=== PATIENT | female | born 1930 | race Caucasian/White ===

== ENCOUNTER 2017-03-21 08:03 | Day surgery (SDC) | payer OTHER, BC ==
[2017-03-21] MEDS ORDERED: ACETAMINOPHEN 325 MG TABLET (FP) PO ONE (08:30)
[2017-03-21] MEDS ORDERED: ACETAMINOPHEN 325 MG TABLET (FP) ONE (08:34)
[2017-03-21] MEDS ORDERED: ZOLEDRONIC ACID/MAN/WATER 100 ML IVPB ONE (09:00)
[2017-03-21 09:15] LABS: ALBUMIN 3.6 g/dl (3.4-5.0); ANION GAP 8 (8-16); BILIRUBIN,TOTAL 0.8 mg/dL (0.2-1.0); CALCIUM 9.3 mg/dL (8.5-10.1); CO2 28 mmol/L (21-32); CREATININE 1.2 mg/dL (0.55-1.02); GLUCOSE,RANDOM 63 mg/dL (74-106); SGOT/AST 18 U/L (15-37); SGPT/ALT 18 U/L (12-78); TOT PROT 6.5 g/dl (6.4-8.2)
[2017-03-21 09:16] LABS: ALK PHOS 55 U/L (45-117)
[2017-03-21 10:30] VITALS: BP 116/59; PULSE 57; TEMP 97.6
== END 2017-03-21 09:45 | disposition home or self-care (01) ==
LOC: JCHEMO 08:03
PROVIDERS: ATTEND Internal Medicine Endocrinology, Diabetes & Metabolism
PROC: 3E033GC Introduction of Other Therapeutic Substance into Peripheral Vein, Percutaneous Approach (ICD-10-PCS; principal; 2017-03-21)
DX: M81.0 Age-related osteoporosis without current pathological fracture (principal)
CPT/HCPCS: 36415; 80053; 96365; J3489

== ENCOUNTER 2018-06-16 14:56 | Emergency (ER) | payer OTHER, BC ==
[2018-06-16 15:16] VITALS: TEMP 98.5; BMI 18.6
[2018-06-16 15:43] LABS: BASO % 0.9 % (0-2.0); EOS % 3.2 % (0-4.5); HEMATOCRIT 38.6 % (32.4-45.2); HEMOGLOBIN 13.5 GM/dL (10.7-15.3); LYMPH % 19.6 % (8-40); MCHC 34.9 g/dl (32.0-36.0); MEAN CELL VOLUME 97.6 fl (80-96); MEAN PLT VOLUME 7.6 fl (7.5-11.1); MONO % 6.4 % (3.8-10.2); NEUT % 69.9 % (42.8-82.8); PLATELET COUNT 250 K/MM3 (134-434); RBC 3.95 M/mm3 (3.60-5.2); RDW 13.2 % (11.6-15.6); WHITE BLOOD COUNT 7.1 K/mm3 (4.0-10.0)
[2018-06-16 15:55] LABS: INR 0.93 (0.83-1.09)
[2018-06-16 15:58] LABS: ACTIVATED PTT 26.7 SECONDS (25.2-36.5)
--- NOTE | 2018-06-16 16:02 | PDOC ---
History of Present Illness - History of Present Illness Initial Comments: 06/16/18 18:29 The patient is an 87 year old female with a past medical history of proximal or paroxysmal atrial fibrillation, COPD, and osteoporosis who presents to the emergency department for evaluation of lightheadedness and palpitations which began at 12pm today. Patient reports feeling lightheaded and palpitations after hot yoga today. Patient reports taking an extra diltiazem after yoga today. She states I feel that I am in atrial fibrillation. Patient is currently taking aspirin. Denies allergies, ablations, and hx of PE, cancer, or recent travels. At presentation, patient reports her symptoms are feeling better. The patient denies chest pain, shortness of breath, headache, nausea, vomiting, fevers, chills, and any bowel/urinary symptoms. PCP: Dr. Armstrong Patient Support Specialist: Dr. Huntley Carton Forming Machine Tender: Dr. Crocker <Dustin Simpson - Last Filed: 06/16/18 18:29> - General History Source: Patient Exam Limitations: No Limitations <Cullen James - Last Filed: 06/20/18 18:08> - General Chief Complaint: Chest Pain Stated Complaint: CHEST PAIN Time Seen by Provider: 06/16/18 15:09 Past History <Dustin Simpson - Last Filed: 06/16/18 18:29> - Past Medical History Anemia: No Cardiac Disorders: Yes (A-FIB) COPD: Yes Hypercholesterolemia: Yes Liver Disease: Yes (mononuclosis hepatitis) - Surgical History Lung Surgery: No Orthopedic Surgery: Yes (RIGHT MIDDLE FINGER SURGERY) - Immunization History Td Vaccination: Yes Immunization Up to Date: Yes - Suicide/Smoking/Psychosocial Hx Smoking Status: No Smoking History: Never smoked Years of Tobacco Use: 20 Have you smoked in the past 12 months: No Number of Cigarettes Smoked Daily: 0 If you are a former smoker, when did you quit?: Over 50 years ago Cigars Per Day: 0 Information on smoking cessation initiated: No Hx Alcohol Use: No Drug/Substance Use Hx: No Substance Use Type: None Hx Substance Use Treatment: No <Cullen James - Last Filed: 06/20/18 18:08> - Past Medical History Allergies/Adverse Reactions: Allergies Allergy/AdvReac Type Severity Reaction Status Date / Time No Known Allergies Allergy Verified 06/16/18 17:48 Home Medications: Ambulatory Orders Cyanocobalamin (Vitamin B-12) [Vitamin B-12] 1 tab SL ASDIR 01/03/13 Multivitamin [Multivitamins] 1 each PO DAILY 01/03/13 Diltiazem Cd [Cardizem Cd -] 180 mg PO DAILY #0 cap.cd.24h 03/28/13 Metoprolol Succinate [Toprol XL -] 25 mg PO DAILY #0 tab.sr.24h 03/28/13 Aspirin [ASA -] 81 mg PO DAILY 04/06/15 Calcium Carbonate [Calcium] 500 mg PO DAILY 04/06/15 Review of Systems - Review of Systems Able to Perform ROS?: Yes Comments:: GENERAL/CONSTITUTIONAL: No fever or chills. No weakness. HEAD, EYES, EARS, NOSE AND THROAT: No change in vision. No ear pain or discharge. No sore throat. CARDIOVASCULAR: (+)Palpitations. No chest pain or shortness of breath. RESPIRATORY: No cough, wheezing, or hemoptysis. GASTROINTESTINAL: No nausea, vomiting, diarrhea or constipation. GENITOURINARY: No dysuria, frequency, or change in urination. MUSCULOSKELETAL: No joint or muscle swelling or pain. No neck or back pain. SKIN: No rash NEUROLOGIC: (+)Lightheadedness. No headache, vertigo, loss of consciousness, or change in strength/sensation. ENDOCRINE: No increased thirst. No abnormal weight change. HEMATOLOGIC/LYMPHATIC: No anemia, easy bleeding, or history of blood clots. ALLERGIC/IMMUNOLOGIC: No hives or skin allergy. <Dustin Simpson - Last Filed: 06/16/18 18:29> *Physical Exam - Vital Signs Last Vital Signs Temp Pulse Resp BP Pulse Ox 98.5 F 69 18 109/67 100 06/16/18 15:01 06/16/18 18:02 06/16/18 18:02 06/16/18 18:02 06/16/18 18:02 - Physical Exam Comments: GENERAL: Awake, alert, and fully oriented, in no acute distress HEAD: No signs of trauma EYES: PERRLA, EOMI, sclera anicteric, conjunctiva clear NECK: Normal ROM, supple, no lymphadenopathy, JVD, or masses LUNGS: Breath sounds equal, clear to auscultation bilaterally. No wheezes, and no crackles HEART: Regular rate and rhythm, normal S1 and S2, no murmurs, rubs or gallops ABDOMEN: Soft, nontender, normoactive bowel sounds. No guarding, no rebound. No masses EXTREMITIES: Normal range of motion, no edema. No clubbing or cyanosis. No cords, erythema, or tenderness NEUROLOGICAL: Cranial nerves II through XII grossly intact. Normal speech, normal gait SKIN: Warm, Dry, normal turgor, no rashes or lesions noted. <Dustin Simpson - Last Filed: 06/16/18 18:29> - Vital Signs Last Vital Signs Temp Pulse Resp BP Pulse Ox 98.5 F 89 16 122/85 100 06/16/18 15:01 06/16/18 15:01 06/16/18 15:01 06/16/18 15:01 06/16/18 15:01 <Cullen James - Last Filed: 06/20/18 18:08> Moderate Sedation - Procedure Monitoring Vital Signs: Procedure Monitoring Vital Signs Temperature 98.5 F 06/16/18 15:01 Pulse Rate 69 06/16/18 18:02 Respiratory Rate 18 06/16/18 18:02 Blood Pressure 109/67 06/16/18 18:02 O2 Sat by Pulse Oximetry (%) 100 06/16/18 18:02 <Dustin Simpson - Last Filed: 06/16/18 18:29> - Procedure Monitoring Vital Signs: Procedure Monitoring Vital Signs Temperature 98.5 F 06/16/18 15:01 Pulse Rate 89 06/16/18 15:01 Respiratory Rate 16 06/16/18 15:01 Blood Pressure 122/85 06/16/18 15:01 O2 Sat by Pulse Oximetry (%) 100 06/16/18 15:01 <Cullen James - Last Filed: 06/20/18 18:08> Heart Score/ECG Review #1 ECG reviewed & interpreted by me at: 15:05 06/16/18 16:02 NSR 114, no std/keo, normal axis, normal intervals, QTC 407 msec <Cullen James - Last Filed: 06/20/18 18:08> ED Treatment Course - LABORATORY CBC & Chemistry Diagram: 06/16/18 15:16 06/16/18 17:10 - ADDITIONAL ORDERS Additional order review: Laboratory Results 06/16/18 06/16/18 06/16/18 17:10 15:16 15:16 PT with INR 11.00 INR 0.93 PTT (Actin FS) 26.7 Sodium 137 Cancelled Potassium 4.7 Cancelled Chloride 106 Cancelled Carbon Dioxide 26 Cancelled Anion Gap 5 L Cancelled BUN 28 H Cancelled Creatinine 1.2 Cancelled Creat Clearance w eGFR 42.40 Cancelled Random Glucose 85 Cancelled Calcium 8.7 Cancelled Phosphorus 3.3 Cancelled Magnesium 2.1 Cancelled Total Bilirubin 0.5 Cancelled AST 19 Cancelled ALT 19 Cancelled Alkaline Phosphatase 56 Cancelled Creatine Kinase 44 Cancelled Troponin I < 0.02 Cancelled Total Protein 6.2 L Cancelled Albumin 3.3 L Cancelled TSH 1.60 Cancelled 06/16/18 15:16 RBC 3.95 MCV 97.6 H MCHC 34.9 RDW 13.2 MPV 7.6 Neutrophils % 69.9 Lymphocytes % 19.6 Monocytes % 6.4 Eosinophils % 3.2 Basophils % 0.9 <Dustin Simpson - Last Filed: 06/16/18 18:29> - LABORATORY CBC & Chemistry Diagram: 06/16/18 15:16 06/16/18 17:10 - ADDITIONAL ORDERS Additional order review: Laboratory Results 06/16/18 15:16 PT with INR 11.00 INR 0.93 06/16/18 15:16 RBC 3.95 MCV 97.6 H MCHC 34.9 RDW 13.2 MPV 7.6 Neutrophils % 69.9 Lymphocytes % 19.6 Monocytes % 6.4 Eosinophils % 3.2 Basophils % 0.9 - RADIOLOGY Radiology Studies Ordered: Category Date Time Status CHEST X-RAY PORTABLE* [RAD] Stat Radiology 06/16/18 15:30 Ordered <Cullen James - Last Filed: 06/20/18 18:08> Medical Decision Making - Medical Decision Making 06/16/18 15:58 A portion of this note was documented by scribe services under my direction. I have reviewed the details of the note, within reason, and agree with the documentation with the following case summary and management plan written by me. Patient treated in the ED. Nursing notes are reviewed and incorporated into the medical decision-making. Vital signs reviewed. Peripheral IV access obtained by the nurse, laboratory studies are drawn and sent, reviewed and interpreted by myself. Vital Signs Temp Pulse Resp BP Pulse Ox 98.5 F 89 16 122/85 100 06/16/18 15:01 06/16/18 15:01 06/16/18 15:01 06/16/18 15:01 06/16/18 15:01 87-year-old female with past medical history of proximal A. fib on aspirin presents with irregular palpitations and lightheadedness. The patient was in her usual state health and feeling well. She was doing yoga at 12:30 PM when she felt the symptoms. Patient felt like she had return of her paryxosymal A. fib. Denied chest pain. Denies recent illnesses, fevers, chills, cough, vomiting , diarrhea. Patient reported that her last each or fibrillation was several years ago that did not require ablation. Patient is currently sinus here now. The patient may have potentially have an episode of proximal A. fib. We'll obtain labs, troponin, TSH. We will consult [place] [facility]. 06/16/18 18:18 CBC, BMP 06/16/18 15:16 06/16/18 17:10 CMP Sodium 137 mmol/L (136-145) 06/16/18 17:10 Potassium 4.7 mmol/L (3.5-5.1) 06/16/18 17:10 Chloride 106 mmol/L (98-107) 06/16/18 17:10 Carbon Dioxide 26 mmol/L (21-32) 06/16/18 17:10 Anion Gap 5 MMOL/L (8-16) L 06/16/18 17:10 BUN 28 mg/dL (7-18) H 06/16/18 17:10 Creatinine 1.2 mg/dL (0.55-1.3) 06/16/18 17:10 Creat Clearance w eGFR 42.40 (>60) 06/16/18 17:10 Random Glucose 85 mg/dL (74-106) 06/16/18 17:10 Calcium 8.7 mg/dL (8.5-10.1) 06/16/18 17:10 Phosphorus 3.3 mg/dL (2.5-4.9) 06/16/18 17:10 Magnesium 2.1 mg/dL (1.8-2.4) 06/16/18 17:10 Total Bilirubin 0.5 mg/dL (0.2-1) 06/16/18 17:10 AST 19 U/L (15-37) 18 17:10 ALT 19 U/L (13-61) 06/16/18 17:10 Alkaline Phosphatase 56 U/L (45-117) 06/16/18 17:10 Creatine Kinase 44 IU/L (26-192) 06/16/18 17:10 Troponin I < 0.02 ng/ml (0.00-0.05) 06/16/18 17:10 Total Protein 6.2 g/dl (6.4-8.2) L 06/16/18 17:10 Albumin 3.3 g/dl (3.4-5.0) L 06/16/18 17:10 TSH 1.60 uIU/ml (0.358-3.74) 06/16/18 17:[address] Rodriguez. Given that the patient is sinus now and no symptoms, Dr. Rodriguez agrees that the patient can follow up as an outpatient this week. Pt is agreeable withp jason. Copy of her workup given to the patient. Pt verbalizes understanding and agrees with plan. Return precautions given. I discussed the physical exam findings, ancillary test results and final diagnoses with the patient. I answered all of the patient's questions. The patient was satisfied with the care received and felt comfortable with the discharge plan and treatment plan. The patient will call their primary care physician within 24 hours to arrange follow-up and will return to the Emergency Department with any new, persistant or worsening symptoms. 06/20/18 18:05 Official chest xray shows mild cardiomegaly and "some upper lobe atelectasis changes and possible infiltrates". Requesting official 1 week chest xray. I called the patient and left a message on voicemail. I also contacted the pt's son and left a message. Will place pt's information for call list for [facility] [employer] [facility] callback. <Cullen James - Last Filed: 06/20/18 18:08> *DC/Admit/Observation/Transfer - Attestations Scribe Attestion: Documentation prepared by Dustin Simpson, acting as medical front desk specialist for Cullen James MD. <Dustin Simpson - Last Filed: 06/16/18 18:29> - Discharge Dispostion Decision to Admit order: No <Cullen James - Last Filed: 06/20/18 18:08> Diagnosis at time of Disposition: Palpitations - Discharge Dispostion Disposition: HOME Condition at time of disposition: Stable - Referrals Referrals: Logan Armstrong MD [Primary Care Provider] - Mackenzie Rodriguez MD [Staff Physician] - - Patient Instructions Printed Discharge Instructions: DI for Palpitations Additional Instructions: Your workup is normal. Please follow up with your primary care physician and movie extra. Call Dr. Rodriguez's office this week to return to the ER.
[2018-06-16 17:53] LABS: ALBUMIN 3.3 g/dl (3.4-5.0); ALK PHOS 56 U/L (45-117); ANION GAP 5 MMOL/L (8-16); BILIRUBIN,TOTAL 0.5 mg/dL (0.2-1); BLOOD UREA NITROGEN 28 mg/dL (7-18); CALCIUM 8.7 mg/dL (8.5-10.1); CHLORIDE 106 mmol/L (98-107); CO2 26 mmol/L (21-32); CREATININE 1.2 mg/dL (0.55-1.3); GLUCOSE,RANDOM 85 mg/dL (74-106); MAGNESIUM 2.1 mg/dL (1.8-2.4); PHOSPHOROUS 3.3 mg/dL (2.5-4.9); POTASSIUM 4.7 mmol/L (3.5-5.1); SGOT/AST 19 U/L (15-37); SGPT/ALT 19 U/L (13-61); SODIUM 137 mmol/L (136-145); TOT PROT 6.2 g/dl (6.4-8.2)
[2018-06-16 18:03] VITALS: BP 109/67; PULSE 69
--- NOTE | 2018-06-17 16:29 | EKG ---
Test Reason : Blood Pressure : / mmHG Vent. Rate : 114 BPM Atrial Rate : 114 BPM P-R Int : 186 ms QRS Dur : 076 ms QT Int : 296 ms P-R-T Axes : 066 000 038 degrees QTc Int : 407 ms SINUS TACHYCARDIA OTHERWISE NORMAL ECG Confirmed by MD CIERRA, KELSEY ([id number]) on 06/17/2018 4:29:35 PM Referred By: Confirmed By:KELSEY NORTON MD
== END 2018-06-16 18:29 | disposition home or self-care (01) ==
LOC: JER 14:56
DX: R00.2 Palpitations (principal); J44.9 Chronic obstructive pulmonary disease, unspecified; I48.91 Unspecified atrial fibrillation; E78.00 Pure hypercholesterolemia, unspecified; Z87.891 Personal history of nicotine dependence; K75.89 Other specified inflammatory liver diseases
CPT/HCPCS: 36415; 71045-TC-FY; 80053; 82550; 83735; 84100; 84443; 84484; 85025; 85610; 85730; 93005; 93010; 99284-25